=== PATIENT | female | born 1990 | race Caucasian/White ===

== ENCOUNTER 2020-06-15 20:46 | Emergency (ER) | payer SELFPAY ==
[~2020-06-15] VITALS: Ht 165.1 cm; Wt 94.3 kg
[2020-06-15 20:58] VITALS: Ht 165.1 cm; Wt 94.3 kg
[2020-06-15] MEDS ORDERED: GOOD NEIGHBOR P10 M1 PO (21:45)
[2020-06-15] MEDS ORDERED: PROVERA10 MG PO (21:45)
[2020-06-15] MEDS ORDERED: CORTISONE60 GM TOP (21:45)
[2020-06-15] MEDS ORDERED: IBU600 M2 PO (22:02)
[2020-06-15] MEDS ORDERED: FLE10 PO (22:02)
[2020-06-15 22:19] VITALS: BP 125/71
== END 2020-06-15 22:19 | disposition home or self-care (01) ==
LOC: ED 20:46
DX: S29.011A Strain of muscle and tendon of front wall of thorax, initial encounter (principal); M79.10 Myalgia, unspecified site; V49.9XXA Car occupant (driver) (passenger) injured in unspecified traffic accident, initial encounter; Y93.89 Activity, other specified; Y92.89 Other specified places as the place of occurrence of the external cause; Y99.8 Other external cause status